=== PATIENT | female | born 1935 | race Caucasian/White ===

== ENCOUNTER 2018-07-14 13:14 | Inpatient (IN) ==
[2018-07-14] MEDS ORDERED: Acetaminophen 325 MG TABLET PO PRN (15:13)
[2018-07-14] MEDS ORDERED: Acetaminophen 650 MG RECTAL SUPP RC PRN (15:13)
[2018-07-14] MEDS ORDERED: *HR* LORazepam 2 MG/ML VIAL IVP PRN (15:31)
[2018-07-14] MEDS ORDERED: *HR* HYDROmorphone (PF) 1 MG/ML SYRINGE IVP PRN (15:31)
[2018-07-14] MEDS ORDERED: Saliva Stimulant 100ml BOTTLE PO PRN (15:41)
[2018-07-14] MEDS ORDERED: Haloperidol Lactate 5 MG/ML VIAL IM PRN (16:48)
--- NOTE | 2018-07-15 12:04 | Internal Med History&Physical ---
Date of Encounter: 07/15/18 Time of Encounter: 11:30 Assessment and Plan (1) CVA (cerebral vascular accident) Current visit: No Status: Acute Continue comfort care without further aggressive intervention. Anticipated survival less than 5 days. 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 Qualifiers: Atrial fibrillation type: chronic Qualified Code(s): I48.2 - Chronic atrial fibrillation Internal Medicine - H&P: HPI Chief complaint: Stroke Admitted From: Direct Admit Plans for Post Hospital Care: Home History of present illness: Ms. Aragon is a 83 year old female who was admitted to general inpatient hospice at [facility] after [facility] stay from July 11-July 14 after she presented to [facility] with acute stroke. Workup showed left MCA and bilateral MOMO territory involvement. CTA showed acute thrombus in left carotid terminus. Echocardiogram showed LVEF of 55-60% with grade 2 diastolic dysfunction, severe LAE, and mild mitral regurgitation. She was discharged on hospice without further aggressive intervention planned She is obtunded and cannot give any history. Past Med Surg Social Fam HX - Past Medical History Medical history: arthritis, atrial fibrillation, CHF, GERD, hypertension, renal disease, other Psychiatric history: anxiety, depression - Past Surgical History Surgical History: orthopedic, other - Social History Smoking Status: Former smoker Smokeless Tobacco Status: No Alcohol use: none Drug use: none - Family History Father Family Member Ethnicity: Non- Living Status: Hx Family Cardiac Disorders: Yes (CA, CVA) Hx Family Neurologic Disorders: Yes (CVA) Mother Family Member Ethnicity: Non- Living Status: Hx Family Cancer: Yes (Breast) Brother Family Member Ethnicity: Non- Living Status: Hx Family Neurologic Disorders: Yes (Alzheimer's disease) Sister Family Member Ethnicity: Non- Living Status: Hx Family Cancer: Yes (Colon) Internal Medicine - H&P: Meds Unable To Obtain [Unable to Obtain] 07/14/18 [History] 3 Allergy/AdvReac Type Severity Reaction Status Date / Time Penicillins Allergy Intermediate Rash Verified 06/19/18 06:43 Beta-Blockers Allergy See Verified 06/19/18 06:43 (Beta-Adrenergic Bloc Comments All Systems PM: A 10-system review of systems was performed and is negative for pertinent findings except as documented above in the HPI. Review of systems: Unobtainable from the patient. 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 - Constitutional Vitals: Temp Pulse Resp BP Pulse Ox 101.0 F H 51 24 121/89 96 07/15/18 08:38 07/15/18 08:38 07/15/18 08:38 07/15/18 08:38 07/15/18 08:38 Exam: Gen.: She is a well-developed well-nourished female lying quietly in bed who appears in no acute distress. HEENT: Head is atraumatic and normocephalic. Eyes: She does not open her eyes spontaneously. She has leftward gaze on manually lifting her upper eyelids. Mouth: She does not open her mouth for evaluation Neck: There is no thyromegaly or adenopathy noted. Heart: Tones are soft. It appears regular without murmurs or gallops Lungs: No wheezes or crackles are heard. Abdomen: Soft and nontender. No masses or guarding are noted. Extremities: She is wearing large padded heel protector boots to avoid pressure and foot drop. No pitting edema is noted. She has DJD changes of her hands. She has resolving ecchymoses in her right shoulder area and left upper arm. Neurologic: Mental status she is obtunded and does not respond significantly to voice or light touch. Cranial nerves: She does not move her facial muscles or follow commands. Eyes show leftward gaze deviation. Motor: She moves her left arm minimally. The right arm appears essentially flaccid on passive range of motion. No further neurologic testing is attentive. Skin: She is diaphoretic and warm.
[2018-07-15] MEDS ORDERED: *HR* LORazepam 2 MG/ML VIAL IVP PRN (12:16)
[2018-07-15] MEDS ORDERED: MORPHINE SUL Oral CONC 10 MG/0.5 ML ORAL.SYG SL PRN (12:22)
[2018-07-16 06:52] VITALS: BP 158/67
--- NOTE | 2018-07-16 09:54 | Internal Med Progress Note ---
Date of Encounter: 07/16/18 Time of Encounter: 09:45 - Assessment and plan (1) CVA (cerebral vascular accident) Current Visit: No Status: Acute Assessment and plan: July 16. Continue comfort care. 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 Will not workup or treat further. Qualifiers: Atrial fibrillation type: chronic Qualified Code(s): I48.2 - Chronic atrial fibrillation - Subjective Interval history: July 16. No new problems have arisen. - Constitutional Vitals: Temp Pulse Resp BP Pulse Ox 100.1 F H 64 14 158/67 99 07/16/18 06:51 07/16/18 06:51 07/16/18 06:51 07/16/18 06:51 07/16/18 06:51 Exam: She is resting comfortably in bed and appears in no acute distress. She does not move spontaneously. She does not respond meaningfully to voice or light touch. Heart is irregularly irregular at rate 72/m. Lungs are clear anteriorly. Consult Discharge Plan - Plan Referrals: Torres Diamond DO [Primary Care Provider] - 1 week
--- NOTE | 2018-07-16 14:55 | Discharge Summary ---
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 Aragon is a 83 year old female who was admitted to general inpatient hospice at [facility] after [facility] stay from July 11-July 14 after she presented to OSH with acute stroke. Workup showed left MCA and bilateral MOMO territory involvement. CTA showed acute thrombus in left carotid terminus. Echocardiogram showed LVEF of 55-60% with grade 2 diastolic dysfunction, severe LAE, and mild mitral regurgitation. She was discharged on hospice without further aggressive intervention planned. She was admitted to [facility] hospice services at [facility] on 07/15/2018. Comfort care was given without further aggressive intervention. Social service coordinated with hospice services and arrangements were complete the afternoon of July 16 for her to be transitioned to [facility] in [place] for ongoing care needs. - Time Spent with Patient Total time spent providing and/or coordinating discharge services: - Discharge Medications Prescriptions: LORazepam Oral Conc [Ativan Oral Conc] 2 mg PO Q2H PRN 5 Days #120 mls PRN Reason: Agitation MORPHINE SUL Oral CONC [Roxanol Oral Conc] 10 mg SL Q1H PRN 5 Days #120 ml PRN Reason: Pain Home Medications: LORazepam Oral Conc [Ativan Oral Conc] 2 mg PO Q2H PRN 5 Days #120 mls 07/16/18 [Rx] MORPHINE SUL Oral CONC [Roxanol Oral Conc] 10 mg SL Q1H PRN 5 Days #120 ml 07/16 [Rx] Allergies/Adverse Reactions: 3 Allergy/AdvReac Type Severity Reaction Status Date / Time Penicillins Allergy Intermediate Rash Verified 06/19/18 06:43 Beta-Blockers Allergy See Verified 06/19/18 06:43 (Beta-Adrenergic Bloc Comments Date of admission: 07/14/18 15:56 Primary care physician: Joe Diamond DO - Constitutional Vitals: Temp Pulse Resp BP Pulse Ox 100.1 F H 64 14 158/67 99 07/16/18 06:51 07/16/18 06:51 07/16/18 06:51 07/16/18 06:51 07/16/18 06:51 - Patient Status Disposition: Hospice - Medical Facility - Discharge Instructions
== END 2018-07-16 16:35 | disposition hospice, inpatient (51) | DRG 66 ==
LOC: INPPIK 15:56
PROVIDERS: ADMIT Internal Medicine; ATTEND Internal Medicine